=== PATIENT | male | born 1995 ===

== ENCOUNTER 2020-07-08 19:46 | Emergency (ER) | payer BC, SELFPAY ==
[2020-07-08] MEDS ORDERED: MORPHINE 4 MG/ML SYR ONE (20:24)
[2020-07-08] MEDS ORDERED: DIAZEPAM 5 MG TABLET ONE (20:24)
[2020-07-08] MEDS ORDERED: ONDANSETRON 4 MG/2 ML VIAL ONE (20:24)
[2020-07-08] MEDS ORDERED: dexAMETHasone 10 MG/ML VIAL ONE (20:24)
[2020-07-08] MEDS ORDERED: NA CHLORIDE 0.9% 1,000 ML ONE (20:25)
[2020-07-08] MEDS ORDERED: KETOROLAC 30 MG/ML INJ ONE (20:25)
[2020-07-08 20:40] LABS: Absolute Lymphocytes (CBC) 2.2 K/uL (0.7-4.9); Hematocrit 44.6 % (39.6-49.0); Lymphocytes % 28.3 % (15.3-44.8); MPV 8.2 fL (7.6-11.3); RBC Red Blood Cell Count 5.34 M/uL (4.33-5.43)
--- NOTE | 2020-07-08 20:46 | RAD REPORT ---
EXAM DESCRIPTION: CTSpine Lumbar Wo Con07/08/2020 8:34 pm CLINICAL HISTORY: Back pain/radiculopathy COMPARISON: None TECHNIQUE: Computed axial tomography lumbar spine was obtained with coronal and sagittal reconstruct ion. All CT scans are performed using dose optimization technique as appropriate and may include automated exposure control or mA/KV adjustment according to patient size. FINDINGS: No fracture is seen. No dislocation is noted. Disc bulge L3-4. Thecal sac measures 9 millimeters. Moderate left posterolateral disc herniation is suspected at L4-5 Spondylolysis L5. Mild anterior subluxation L5 on S1. Schmorl's nodes involve T11-12 and T12-L1 IMPRESSION: Moderate left posterolateral disc herniation suspected L4-5. MRI lumbar spine recommende d for further evaluation Spondylosis L3-4 resulting in mild central spinal stenosis
[2020-07-08 20:58] LABS: ALT/SGPT 36 U/L (12-78); AST/SGOT 21 U/L (15-37); Albumin 4.3 g/dL (3.4-5.0); Alkaline Phosphatase 62 U/L (45-117); BUN Blood Urea Nitrogen 9 mg/dL (7-18); Bicarbonate 28 mmol/L (21-32); Bilirubin Total 0.4 mg/dL (0.2-1.0); Glucose Level 98 mg/dL (74-106); Potassium 3.7 mmol/L (3.5-5.1); Protein, Total 7.6 g/dL (6.4-8.2); Sodium Level 141 mmol/L (136-145)
--- NOTE | 2020-07-08 21:26 | ER ---
Nurse's Notes [facility] Name: Dioni Osorio Age: 25 yrs Sex: Male : 1995 Arrival Date: 07/08/2020 Time: 19:44 Bed 27 Private MD: Diagnosis: Low back pain-Moderate Left Posteriolateral Disk Herniation L4-L5;Spondylolysis, lumbar [id number];Spinal stenosis, lumbar region Presentation: 07/08 19:49 Chief complaint: EMS states: I was walking into [employer] when my back locked up on sg me, Im not able to sit up without my back hurting, reports was unable to stand to walk, able to move all extremities per EMS, no loss of bowel or bladder reported. Coronavirus screen: Client denies travel out of the [place] in the last 14 days. Ebola Screen: Patient negative for fever greater than or equal to 101.5 degrees Fahrenheit, and additional compatible Ebola Virus Disease symptoms Patient denies exposure to infectious person. Patient denies travel to an Ebola-affected area in the 21 days before illness onset. No symptoms or risks identified at this time. Risk Assessment: Do you want to hurt yourself or someone else? Patient reports no desire to harm self or others. Onset of symptoms was July 08, 2020. Care prior to arrival: None. Transition of care: patient was not received from another setting of care. 19:49 Method Of Arrival: EMS: [facility] sg 19:49 Acuity: KEMAL 4 sg 20:00 Initial Sepsis Screen: Does the patient meet any 2 criteria? No. Patient's initial sg sepsis screen is negative. Does the patient have a suspected source of infection? No. Patient's initial sepsis screen is negative. Historical: - Allergies: 19:52 PENICILLINS; sg - Home Meds: 19:52 Symbicort inhalation inhalation [Active]; sg - PMHx: 19:52 Asthma; sg - PSHx: 19:52 None; sg - Family history:: not pertinent. Screenin:00 Abuse screen: Denies threats or abuse. Denies injuries from another. Nutritional sg screening: No deficits noted. Tuberculosis screening: No symptoms or risk factors identified. Never had TB. Fall Risk None identified. Assessment: 20:00 General: Appears in no apparent distress. well groomed, well developed, well nourished, sg Behavior is calm, cooperative, appropriate for age. Pain: Complains of pain in lumbar area Quality of pain is described as sharp, squeezing. Neuro: Level of Consciousness is awake, alert, obeys commands, Oriented to person, place, time, situation, Resident Services Director are equal bilaterally Moves all extremities. Facial symmetry appears normal. Cardiovascular: Patient's skin is warm and dry. Chest pain is denied. Respiratory: Airway is patent Respiratory effort is even, unlabored, Respiratory pattern is regular, symmetrical. GI: No signs and/or symptoms were reported involving the gastrointestinal system. : No signs and/or symptoms were reported regarding the genitourinary system. EENT: No signs and/or symptoms were reported regarding the EENT system. Derm: Skin is pink, warm \T\ dry. Musculoskeletal: Circulation, motion, and sensation intact. Reports unable to stand and ambulate on scene, so EMS was called. 21:15 Reassessment: Patient appears in no apparent distress at this time. Patient and/or sg family updated on plan of care and expected duration. Pain level reassessed. Patient is alert, oriented x 3, equal unlabored respirations, skin warm/dry/pink. pt now able to sit up, stand and ambulate at this time, reports pain down to 2/10 from 10/10 Patient states feeling better. Patient states symptoms have improved. Vital Signs: 20:30 BP 128 / 77; Pulse 78; Resp 16; Temp 97.9; Pulse Ox 99% on R/A; sg ED Course: 19:44 Patient arrived in ED. zb 19:46 Nelson Galarza MD is Attending Physician. maia 19:51 Triage completed. sg 19:51 Arm band placed on. sg 20:00 Patient has correct armband on for positive identification. Bed in low position. Call sg light in reach. Side rails up X2. Pulse ox on. NIBP on. Verbal reassurance given. Head of bed elevated. 20:00 Initial lab(s) drawn, by me, sent to lab. Inserted saline lock: 20 gauge in right upper sg arm, using aseptic technique. Blood collected. 20:03 Jeffrey Engle, ISSA is Primary Nurse. sg 20:34 CT Lumbar Spine Wo Con In Process Unspecified. EDMS 21:22 Fox Lee MD is Referral Physician. [facility] 21:25 No provider procedures requiring assistance completed. IV discontinued, intact, sg bleeding controlled, No redness/swelling at site. Pressure dressing applied. 07/09 06:10 ICE pack applied to back of pt neck per request prior to IV start. pt reports a phobia sg of needle and blood draw. Administered Medications: 07/08 20:20 Drug: NS 0.9% 1000 ml Route: IV; Rate: 1 bolus; Site: right upper arm; sg 21:30 Follow up: Response: No adverse reaction; IV Status: Completed infusion; IV Intake: sg 1000ml 20:20 Drug: TORadol 30 mg Route: IVP; Site: right upper arm; sg 20:50 Follow up: Response: No adverse reaction sg 20:20 Drug: Valium 5 mg Route: PO; sg 20:50 Follow up: Response: No adverse reaction; Pain is decreased sg 20:20 Drug: Zofran (Ondansetron) 4 mg Route: IVP; Site: right upper arm; sg 20:50 Follow up: Response: No adverse reaction; Nausea is decreased sg 20:20 Drug: Decadron - Dexamethasone 10 mg Route: IVP; Site: right upper arm; sg 20:50 Follow up: Response: No adverse reaction; Pain is decreased sg 20:20 Drug: morphine 4 mg Route: IVP; Site: right upper arm; sg 20:50 Follow up: Response: No adverse reaction; Pain is decreased sg 20:32 Not Given (Duplicate Order): morphine 4 mg Sub-Q once; RASS on ADMIN: Combtv4, Very sg Agttd3, Agttd2, Rstlss1, AlertClm0, Drwsy-1, Lt Sdtn-2, Mod Sdtn-3, Dp Sdtn-4, UnArsble-5 Intake: 21:30 IV: 1000ml; Total: 1000ml. sg Outcome: 21:25 Discharge ordered by . [facility] 21:25 Discharged to home ambulatory, with friend. sg 21:25 Condition: good 21:25 Discharge instructions given to patient, Instructed on discharge instructions, follow up and referral plans. medication usage, safety practices, Demonstrated understanding of instructions, follow-up care, medications, Prescriptions given X 4. 21:30 Patient left the ED. sg Signatures: Dispatcher [employer] EDJeffrey Roberts RN Nelson Koehler MD MD cha Brown, Zipporah, RN RN zb Corrections: (The following items were deleted from the chart) 20:32 20:27 morphine 4 mg Sub-Q in right upper arm sherita maglalon
--- NOTE | 2020-07-08 21:26 | EDPHYS ---
Physician Documentation [facility] Name: Dioni Osorio Age: 25 yrs Sex: Male : 1995 Arrival Date: 07/08/2020 Time: 19:44 Bed 27 Private MD: ED Physician Nelson Galarza HPI: 07/08 19:54 This 25 yrs old Male presents to ER via EMS with complaints of Back Pain. maia 19:54 The patient presents with pain that is acute, with no known mechanism of injury. The maia symptoms are located in the low back. Onset: The symptoms/episode began/occurred just prior to arrival. The pain does not radiate. Associated signs and symptoms: The patient has no apparent associated signs or symptoms. The problem was sustained from unknown cause. Modifying factors: The patient symptoms are alleviated by remaining still, the patient symptoms are aggravated by any movement, bending, movement. Severity of symptoms: At their worst the symptoms were mild, in the emergency department the symptoms are unchanged. The patient has not experienced similar symptoms in the past. Historical: - Allergies: 19:52 PENICILLINS; sg - Home Meds: 19:52 Symbicort inhalation inhalation [Active]; sg - PMHx: 19:52 Asthma; sg - PSHx: 19:52 None; sg - Family history:: not pertinent. ROS: 19:54 Constitutional: Negative for fever, chills, and weight loss, Eyes: Negative for injury, maia pain, redness, and discharge, ENT: Negative for injury, pain, and discharge, Neck: Negative for injury, pain, and swelling, Cardiovascular: Negative for chest pain, palpitations, and edema, Respiratory: Negative for shortness of breath, cough, wheezing, and pleuritic chest pain, Abdomen/GI: Negative for abdominal pain, nausea, vomiting, diarrhea, and constipation, : Negative for injury, bleeding, discharge, and swelling, MS/Extremity: Negative for injury and deformity, Skin: Negative for injury, rash, and discoloration, Neuro: Negative for headache, weakness, numbness, tingling, and seizure, Psych: Negative for depression, anxiety, suicide ideation, homicidal ideation, and hallucinations, Allergy/Immunology: Negative for hives, rash, and allergies, Endocrine: Negative for neck swelling, polydipsia, polyuria, polyphagia, and marked weight changes, Hematologic/Lymphatic: Negative for swollen nodes, abnormal bleeding, and unusual bruising. 19:54 Back: Positive for decreased range of motion. 19:54 : Negative for injury or acute deformity, urinary symptoms, urinary frequency, hematuria. 19:54 MS/extremity: Negative for acute changes. Exam: 19:54 Constitutional: This is a well developed, well nourished patient who is awake, alert, maia and in no acute distress. Head/Face: Normocephalic, atraumatic. Eyes: Pupils equal round and reactive to light, extra-ocular motions intact. Lids and lashes normal. Conjunctiva and sclera are non-icteric and not injected. Cornea within normal limits. Periorbital areas with no swelling, redness, or edema. ENT: Nares patent. No nasal discharge, no septal abnormalities noted. Tympanic membranes are normal and external auditory canals are clear. Oropharynx with no redness, swelling, or masses, exudates, or evidence of obstruction, uvula midline. Mucous membranes moist. Neck: Trachea midline, no thyromegaly or masses palpated, and no cervical lymphadenopathy. Supple, full range of motion without nuchal rigidity, or vertebral point tenderness. No Meningismus. Chest/axilla: Normal chest wall appearance and motion. Nontender with no deformity. No lesions are appreciated. Cardiovascular: Regular rate and rhythm with a normal S1 and S2. No gallops, murmurs, or rubs. Normal PMI, no JVD. No pulse deficits. Respiratory: Lungs have equal breath sounds bilaterally, clear to auscultation and percussion. No rales, rhonchi or wheezes noted. No increased work of breathing, no retractions or nasal flaring. Abdomen/GI: Soft, non-tender, with normal bowel sounds. No distension or tympany. No guarding or rebound. No evidence of tenderness throughout. Male : Normal genitalia with no discharge or lesions. Skin: Warm, dry with normal turgor. Normal color with no rashes, no lesions, and no evidence of cellulitis. MS/ Extremity: Pulses equal, no cyanosis. Neurovascular intact. Full, normal range of motion. Neuro: Awake and alert, GCS 15, oriented to person, place, time, and situation. Cranial nerves II-XII grossly intact. Motor strength 5/5 in all extremities. Sensory grossly intact. Cerebellar exam normal. Normal gait. Psych: Awake, alert, with orientation to person, place and time. Behavior, mood, and affect are within normal limits. 19:54 Back: pain, that is moderate, ROM is decreased, normal spinal alignment noted, CVA tenderness, is absent. Vital Signs: 20:30 BP 128 / 77; Pulse 78; Resp 16; Temp 97.9; Pulse Ox 99% on R/A; sg MDM: 19:46 Patient medically screened. [facility] 19:54 Differential diagnosis: chronic back pain, Fracture Ligament Injury Ureterolithiasis. [facility] Data reviewed: vital signs, nurses notes. Data interpreted: athletic monitor: not applicable for this patient encounter. rate is 85 beats/min, rhythm is regular, Pulse oximetry: on room air is 100 %. Test interpretation: by ED physician or midlevel provider: plain radiologic studies. Counseling: I had a detailed discussion with the patient and/or guardian regarding: the historical points, exam findings, and any diagnostic results supporting the discharge/admit diagnosis, lab results, radiology results, the need for outpatient follow up, for definitive care, a family practitioner. 07/08 19:54 Order name: CBC with Diff; Complete Time: 21:20 [facility] 07/08 19:54 Order name: Comprehensive Metabolic Panel; Complete Time: 21:20 [facility] 07/08 19:54 Order name: CT Lumbar Spine Wo Con; Complete Time: 21:20 [facility] 07/08 20:05 Order name: IV Saline Lock; Complete Time: 20:32 sg Administered Medications: 20:20 Drug: NS 0.9% 1000 ml Route: IV; Rate: 1 bolus; Site: right upper arm; sg 21:30 Follow up: Response: No adverse reaction; IV Status: Completed infusion; IV Intake: sg 1000ml 20:20 Drug: TORadol 30 mg Route: IVP; Site: right upper arm; sg 20:50 Follow up: Response: No adverse reaction sg 20:20 Drug: Valium 5 mg Route: PO; sg 20:50 Follow up: Response: No adverse reaction; Pain is decreased sg 20:20 Drug: Zofran (Ondansetron) 4 mg Route: IVP; Site: right upper arm; sg 20:50 Follow up: Response: No adverse reaction; Nausea is decreased sg 20:20 Drug: Decadron - Dexamethasone 10 mg Route: IVP; Site: right upper arm; sg 20:50 Follow up: Response: No adverse reaction; Pain is decreased sg 20:20 Drug: morphine 4 mg Route: IVP; Site: right upper arm; sg 20:50 Follow up: Response: No adverse reaction; Pain is decreased sg 20:32 Not Given (Duplicate Order): morphine 4 mg Sub-Q once; RASS on ADMIN: Combtv4, Very sg Agttd3, Agttd2, Rstlss1, AlertClm0, Drwsy-1, Lt Sdtn-2, Mod Sdtn-3, Dp Sdtn-4, UnArsble-5 Disposition: 07/08/20 21:25 Discharged to Home. Impression: Low back pain - Moderate Left Posteriolateral Disk Herniation L4-L5, Spondylolysis, lumbar region - L3-L4, Spinal stenosis, lumbar region. - Condition is Stable. - Discharge Instructions: Back Pain, Adult, Musculoskeletal Pain, Back Pain, Adult, [id number]. - Prescriptions for dexamethasone 2 mg Oral tablet - take 1 tablet by ORAL route 3 times per day; 15 tablet. Ibuprofen 600 mg Oral Tablet - take 1 tablet by ORAL route every 6 hours As needed take with food; 20 tablet. Tylenol- Codeine #3 300-30 mg Oral Tablet - take 2 tablets by ORAL route every 6 hours As needed; 20 tablet. Cyclobenzaprine 5 mg Oral Tablet - take 1 tablet by ORAL route 3 times per day As needed; 15 tablet. - Medication Reconciliation Form, Thank You Letter, Antibiotic Education, Prescription Opioid Use form. - Follow up: Private Physician; When: 2 - 3 days; Reason: Recheck today's complaints, Continuance of care, Re-evaluation by your physician. Follow up: Fox Lee; When: 2 - 3 days; Reason: Recheck today's complaints, Re-evaluation by your physician. - Problem is new. - Symptoms have improved. Signatures: Dispatcher [employer] EDJeffrey Roberts RN RN sg Anderson, Corey, MD MD cha Corrections: (The following items were deleted from the chart) 21:30 21:25 07/08/2020 21:25 Discharged to Home. Impression: Low back pain - Moderate Left sg Posteriolateral Disk Herniation L4-L5; Spondylolysis, lumbar region - L3-L4; Spinal stenosis, lumbar region. Condition is Stable. Discharge Instructions: Back Pain, Adult, Musculoskeletal Pain, Back Pain, Adult, [id number]. Prescriptions for dexamethasone 2 mg Oral tablet - take 1 tablet by ORAL route 3 times per day; 15 tablet, Ibuprofen 600 mg Oral Tablet - take 1 tablet by ORAL route every 6 hours As needed take with food; 20 tablet, Tylenol-Codeine #3 300-30 mg Oral Tablet - take 2 tablets by ORAL route every 6 hours As needed; 20 tablet, Cyclobenzaprine 5 mg Oral Tablet - take 1 tablet by ORAL route 3 times per day As needed; 15 tablet. and Forms are Medication Reconciliation Form, Thank You Letter, Antibiotic Education, Prescription Opioid Use. Follow up: Private Physician; When: 2 - 3 days; Reason: Recheck today's complaints, Continuance of care, Re-evaluation by your physician. Follow up: Fox Lee; When: 2 - 3 days; Reason: Recheck today's complaints, Re-evaluation by your physician. Problem is new. Symptoms have improved. maia
[2020-07-09 03:07] VITALS: BP 128/77; TEMP 97.9; O2SAT 99
== END 2020-07-08 21:30 | disposition home or self-care (01) ==
LOC: ER 19:46
DX: M51.26 Other intervertebral disc displacement, lumbar region (principal); M43.06 Spondylolysis, lumbar region; M48.061 Spinal stenosis, lumbar region without neurogenic claudication; Z88.0 Allergy status to penicillin
CPT/HCPCS: 36415; 72131; 80053; 85025; 96361; 96374; 96375; 99284; J1100; J2405; J7030